=== PATIENT | female | born 1980 | race Caucasian/White ===

== ENCOUNTER 2016-11-05 21:45 | Emergency (ER) | payer BC, OTHER ==
[~2016-11-05] VITALS: Ht 157.5 cm; Wt 60.8 kg
[2016-11-05 21:45] VITALS: BP_SYST 102
[2016-11-06 01:19] VITALS: BP_SYST 108
== END 2016-11-06 01:19 | disposition home or self-care (01) ==
LOC: SED 21:45
DX: J02.8 Acute pharyngitis due to other specified organisms (principal); B97.89 Other viral agents as the cause of diseases classified elsewhere; Z91.040 Latex allergy status
CPT/HCPCS: 36415; 86403; 87081; 99284